=== PATIENT | female | born 1980 | race Two or more races ===

== ENCOUNTER 2023-04-03 08:23 | Outpatient (CLI) | payer OTHER | END 2023-04-03 08:35 | disposition home or self-care (01) | LOC: LAB 08:23 | DX: D64.9 Anemia, unspecified (principal); G89.29 Other chronic pain; O03.88 Urinary tract infection following complete or unspecified spontaneous abortion; E55.9 Vitamin D deficiency, unspecified; D50.8 Other iron deficiency anemias; D51.1 Vitamin B12 deficiency anemia due to selective vitamin B12 malabsorption with proteinuria; D51.3 Other dietary vitamin B12 deficiency anemia; K90.0 Celiac disease; C50.819 Malignant neoplasm of overlapping sites of unspecified female breast; E78.9 Disorder of lipoprotein metabolism, unspecified; D13.9 Benign neoplasm of ill-defined sites within the digestive system; E11.65 Type 2 diabetes mellitus with hyperglycemia; E78.49 Other hyperlipidemia; Z79.01 Long term (current) use of anticoagulants; Z11.3 Encounter for screening for infections with a predominantly sexual mode of transmission; Z13.228 Encounter for screening for other metabolic disorders; Z01.89 Encounter for other specified special examinations; Z12.11 Encounter for screening for malignant neoplasm of colon; E03.9 Hypothyroidism, unspecified; D69.9 Hemorrhagic condition, unspecified; M10.9 Gout, unspecified; J30.0 Vasomotor rhinitis; R97.8 Other abnormal tumor markers; N39.0 Urinary tract infection, site not specified; I25.10 Atherosclerotic heart disease of native coronary artery without angina pectoris; I25.119 Atherosclerotic heart disease of native coronary artery with unspecified angina pectoris; I25.799 Atherosclerosis of other coronary artery bypass graft(s) with unspecified angina pectoris; Z13.6 Encounter for screening for cardiovascular disorders ==